=== PATIENT | female | born 1980 | race African-American/Black ===

== ENCOUNTER 2020-06-05 12:11 | Emergency (ER) | payer BC, OTHER ==
[2020-06-05 12:28] VITALS: BP 111/70; PULSE 88; TEMP 98.7; BMI 27.1
== END 2020-06-05 13:57 | disposition home or self-care (01) ==
LOC: FER 12:11
DX: S69.92XA Unspecified injury of left wrist, hand and finger(s), initial encounter (principal)
CPT/HCPCS: 73110-TC-LT-FY; 73130-TC-LT-FY; 99284-25